=== PATIENT | male | born 1965 ===

== ENCOUNTER 2019-12-14 06:40 | Day surgery (SDC) | payer OTHER ==
[2019-12-14] MEDS ORDERED: TYLENOL ARTHRI650 MG PO (10:56)
[2019-12-14] MEDS ORDERED: MIRALAX17 GM PO (10:56)
[2019-12-14] MEDS ORDERED: NEURONTIN300 MG PO (10:56)
[2019-12-14] MEDS ORDERED: ULTRAM50 MG PO (10:56)
== END 2019-12-14 17:15 | disposition home or self-care (01) ==
LOC: CIR.AMB 06:40 → ADM 11:00 → CIR.AMB 11:00
PROVIDERS: ATTEND Surgery
DX: K40.91 Unilateral inguinal hernia, without obstruction or gangrene, recurrent (principal); D17.6 Benign lipomatous neoplasm of spermatic cord